=== PATIENT | male | born 1970 | race Asian ===

== ENCOUNTER 2023-12-16 01:13 | Emergency (ER) | payer OTHER ==
[~2023-12-16] VITALS: Ht 177.8 cm; Wt 72.3 kg
[2023-12-16 01:29] VITALS: TEMP 98.2
[2023-12-16 01:38] VITALS: BP 142/77; PULSE 92; RESP 18
[2023-12-16] MEDS: KETOROLAC TROMETHAMINE 30 MG/ML VIAL IM ONE (03:10)
[2023-12-16] MEDS ORDERED: IBUP-1492 PO (03:50)
== END 2023-12-16 04:23 | disposition home or self-care (01) ==
LOC: EMS 01:16
DX: R07.89 Other chest pain (principal); I10 Essential (primary) hypertension
CPT/HCPCS: 99283; 71101; 96372; J1885

== ENCOUNTER 2024-12-29 19:52 | Emergency (ER) | payer OTHER ==
[~2024-12-29] VITALS: Ht 177.8 cm; Wt 71.8 kg
[~2024-12-29 19:52] MED LIST: IBUP-1492 PO
[2024-12-29 20:06] VITALS: TEMP 98.5
[2024-12-29 20:21] LABS: GLUCOMETER DEV NAME(LOC) ER.7; GLUCOSE,POINT OF CARE 309 MG/DL (70-110)
[2024-12-29 21:17] LABS: APPEARANCE,URINE HAZY (CLEAR); GLUCOSE, URINE (UA) >=1000 mg/dL (NEGATIVE); LEUKOCYTE ESTERASE ,URINE LARGE (NEGATIVE); NITRATE,URINE NEGATIVE (NEGATIVE); OCCULT BLOOD,URINE LARGE (NEGATIVE); SPECIFIC GRAVITIY, URINE 1.034 (1.003-1.030)
[2024-12-29 21:20] LABS: PLATELET COUNT (AUTO) 427 K/uL (150-450); RED BLOOD CELL COUNT(AUTO) 5.14 MIL/uL (4.50-5.90); RED CELL DISTRIBUTION WIDTH 12.4 % (11.5-14.5); WHITE BLOOD COUNT (AUTO) 17.7 K/uL (4.5-11.0)
[2024-12-29 21:31] LABS: CALCIUM, TOTAL 9.3 mg/dL (8.8-10.5); CREATININE 1.06 mg/dL (0.60-1.30); GLOMERULAR FILTR. RATE CALC > 60 mL/min (>60); GLUCOSE,RANDOM 339 mg/dL (70-110); SODIUM SERUM 132 mmol/L (136-145); UREA NITROGEN, BLOOD 10 mg/dL (7-18)
[2024-12-29 21:33] LABS: SQUAMOUS EPITHELIAL CELL,UR Rare /LPF (None Seen)
[2024-12-29] MEDS: SODIUM CHLORIDE 0.9% 2,150 ML IV ONE (22:25)
[2024-12-29] MEDS: PIPERACILLIN/TAZO 3.375 GM/D5W 50 ML IV ONE (22:25)
[2024-12-29 22:43] LABS: LACTIC ACID 0.7 mmol/L (0.4-2.0)
[2024-12-30] MEDS ORDERED: IOHEXOL 300 MG/ML 100 ML VIAL ONE (03:04)
[2024-12-30 06:00] VITALS: BP 122/82; PULSE 82; RESP 16; O2SAT 97
[2024-12-30] MEDS ORDERED: CIPR500S4 PO (06:09)
[2025-01-01] MEDS ORDERED: GLIM-8 PO (03:46)
[2025-01-01] MEDS ORDERED: SEMA0.258 SQ (03:46)
[2025-01-01] MEDS ORDERED: OMEP-148 PO (03:46)
[2025-01-01] MEDS ORDERED: LISI-894 PO (03:46)
[2025-01-01] MEDS ORDERED: EZET10TA57 PO (03:46)
[2025-01-01] MEDS ORDERED: GABA-1181 PO (03:46)
[2025-01-01] MEDS ORDERED: NAPR-1196 PO (03:46)
[2025-01-01] MEDS ORDERED: EMPA25TA3 PO (03:46)
[2025-01-02] MEDS ORDERED: LINE600T14 PO (16:16)
[2025-01-02] MEDS ORDERED: INSLAN SQ (16:20)
[2025-01-02] MEDS ORDERED: INSU100V42 SQ (16:20)
== END 2024-12-30 06:25 | disposition home or self-care (01) ==
LOC: EMS 19:52
DX: N10 Acute pyelonephritis (principal); R31.9 Hematuria, unspecified; R10.32 Left lower quadrant pain; I10 Essential (primary) hypertension
CPT/HCPCS: 99285; 74177; 96365; 80048; 81001; 82962; 83605; 85025; 87040; 87077; 87086; 87186; 84145; 36415; J2543; J7030; Q9967